=== PATIENT | male | born 1960 | race Caucasian/White ===

== ENCOUNTER 2021-10-31 15:16 | Inpatient (IN) | payer MEDICAID ==
[~2021-10-31] VITALS: Ht 172.7 cm; Wt 68.5 kg
[~2021-10-31 15:16] MED LIST: ALBU6.7H9 INH; LEVA15HF4 IH; PROM12.512 PO; TRAM50TA2 PO
[2021-10-31] MEDS ORDERED: normal saline 1000ML IV soln IV ONE (16:00)
[2021-10-31] MEDS ORDERED: CefTRIAXone 2gm/NS 100ml IVPB 100 ML IV ONE (16:20)
[2021-10-31 16:43] LABS: ALANINE AMINOTRANSFERASE 59 U/L (12-78); ALBUMIN 1.7 G/DL (3.4-5.0); ALBUMIN/GLOBULIN RATIO 0.4 (1.1-1.5); ALKALINE PHOSPHATASE 142 IU/L (46-116); ANION GAP 7 (8-16); ASPARTATE AMINO TRANSFERASE 73 U/L (10-37); BILIRUBIN,TOTAL 1.8 MG/DL (0.1-1.0); BLOOD UREA NITROGEN 13 MG/DL (7-18); CALCIUM 7.2 MG/DL (8.5-10.1); CHLORIDE 111 MMOL/L (99-107); CREATININE 0.59 MG/DL (0.60-1.10); GLUCOSE 126 MG/DL (70-104); POTASSIUM 3.6 MMOL/L (3.5-5.1); SODIUM 141 MMOL/L (135-145); TOTAL CARBON DIOXIDE 22.7 MMOL/L (24-32); TOTAL PROTEIN 5.9 G/DL (6.4-8.2); eGFR > 90 ML/MIN
[2021-10-31 16:52] LABS: BASOPHILS # (AUTO) 0.1 X10'3 (0-0.2); BASOPHILS % (AUTO) 0.6 % (0-1); EOSINOPHILS # (AUTO) 0.1 X10'3 (0-0.9); EOSINOPHILS % (AUTO) 0.8 % (0-6); HEMATOCRIT 32.4 % (42.0-52.0); HEMOGLOBIN 10.9 g/dl (14.0-17.9); LYMPHOCYTES # (AUTO) 1.4 X10'3 (1.1-4.8); LYMPHOCYTES % (AUTO) 12.3 % (21-51); MEAN CORPUSCULAR HEMOGLOBIN 34.2 PG (27.0-31.0); MEAN CORPUSCULAR HGB CONC 33.7 g/dL (33.0-36.5); MEAN CORPUSCULAR VOLUME 101.4 FL (78-98); MONOCYTES # (AUTO) 1.2 X10'3 (0-0.9); MONOCYTES % (AUTO) 10.6 % (2-12); NEUTROPHILS # (AUTO) 8.6 X10'3 (1.8-7.7); NEUTROPHILS % (AUTO) 75.7 % (42-75); RED BLOOD COUNT 3.19 X10'6 (4.70-6.10); RED CELL DISTRIBUTION WIDTH 17.3 % (11.5-14.5); WHITE BLOOD COUNT 11.3 X10'3 (4.5-11.0)
[2021-10-31 17:12] LABS: MEAN PLATELET VOLUME 8.5 FL (7.4-10.4)
[2021-10-31 17:13] LABS: PLATELET COUNT 86 X10'3 (140-440)
[2021-10-31] MEDS ORDERED: ondansetron 4mg rapidly disintigrating tab PO PRN (18:05)
[2021-10-31] MEDS ORDERED: magnesium hydroxide 30ml (MOM) UD suspension PO PRN (18:05)
[2021-10-31] MEDS ORDERED: mag hydrox/Alum hydrox/simeth 30ml oral suspension PO PRN (18:05)
[2021-10-31] MEDS ORDERED: ondansetron/PF 4mg/2ml inj IV PRN (18:05)
[2021-10-31] MEDS ORDERED: potassium Cl 20 mEq SR tablet PO PRN ×2 (18:05)
[2021-10-31] MEDS ORDERED: potassium CL 10mEq/100ml bag 100 ML IV PRN (18:05)
[2021-10-31] MEDS ORDERED: metoclopramide 5 mg/ml inj IV PRN (18:05)
[2021-10-31] MEDS ORDERED: bisacodyl 10mg suppository rectal RC PRN (18:05)
[2021-10-31] MEDS ORDERED: acetaminophen 325mg tablet PO PRN ×2 (18:05)
[2021-10-31] MEDS ORDERED: magnesium Cl slow-release 64mg tablet PO PRN (18:05)
[2021-10-31] MEDS ORDERED: PERFLUTREN PROTEIN-A MICROSPHR (Optison) 0.22 MG/ML 3ML VIAL IV ONE (18:05)
[2021-10-31] MEDS ORDERED: magnesium 4gm in 100ml NS 100 ML IV PRN (18:05)
[2021-10-31] MEDS ORDERED: acetaminophen 650mg rectal suppository RC PRN (18:05)
[2021-10-31] MEDS ORDERED: magnesium 2GM in 50ml NS 50 ML IV PRN (18:05)
[2021-10-31] MEDS ORDERED: iohexol 350MG/ML 100ml bottle IV ONE (18:29)
[2021-10-31 18:39] LABS: ETHANOL < 0.010 GM/DL (0.0-0.010)
[2021-10-31] MEDS: K and/or MAG REPLACEMENT MC SCH (18:41)
[2021-10-31] MEDS: normal saline 1000ml 1,000 ML IV SCH (19:04)
[2021-10-31] MEDS: docusate sod 100mg capsule PO SCH (20:00)
[2021-10-31 22:00] VITALS: BP 118/55
[2021-10-31] MEDS ORDERED: ALB0.5UD IH (22:12)
[2021-11-01] MEDS: normal saline 1000ml 1,000 ML IV SCH ×3 (04:05→23:32)
[2021-11-01 06:00] VITALS: BP 136/72
[2021-11-01 06:54] LABS: BASOPHILS % (AUTO) 0.3 % (0-1); EOSINOPHILS % (AUTO) 0.1 % (0-6); HEMOGLOBIN 10.1 g/dl (14.0-17.9); LYMPHOCYTES # (AUTO) 1.5 X10'3 (1.1-4.8); LYMPHOCYTES % (AUTO) 11.7 % (21-51); MEAN CORPUSCULAR HEMOGLOBIN 33.7 PG (27.0-31.0); MEAN CORPUSCULAR HGB CONC 33.5 g/dL (33.0-36.5); MEAN CORPUSCULAR VOLUME 100.4 FL (78-98); MEAN PLATELET VOLUME 9.1 FL (7.4-10.4); MONOCYTES # (AUTO) 1.7 X10'3 (0-0.9); MONOCYTES % (AUTO) 13.3 % (2-12); NEUTROPHILS # (AUTO) 9.3 X10'3 (1.8-7.7); NEUTROPHILS % (AUTO) 74.6 % (42-75); RED BLOOD COUNT 2.99 X10'6 (4.70-6.10); RED CELL DISTRIBUTION WIDTH 17.2 % (11.5-14.5); WHITE BLOOD COUNT 12.5 X10'3 (4.5-11.0)
[2021-11-01 06:58] LABS: PLATELET COUNT 80 X10'3 (140-440)
[2021-11-01 07:46] LABS: ALANINE AMINOTRANSFERASE 51 U/L (12-78); ALBUMIN 1.5 G/DL (3.4-5.0); ALBUMIN/GLOBULIN RATIO 0.4 (1.1-1.5); ALKALINE PHOSPHATASE 110 IU/L (46-116); ANION GAP 9 (8-16); ASPARTATE AMINO TRANSFERASE 73 U/L (10-37); BILIRUBIN,TOTAL 2.4 MG/DL (0.1-1.0); BLOOD UREA NITROGEN 12 MG/DL (7-18); BUN/CREATININE RATIO 23.1 (5.4-32.0); CALCIUM 7.1 MG/DL (8.5-10.1); CHLORIDE 114 MMOL/L (99-107); CREATININE 0.52 MG/DL (0.60-1.10); GLUCOSE 102 MG/DL (70-104); MAGNESIUM 1.9 MG/DL (1.5-2.4); POTASSIUM 3.5 MMOL/L (3.5-5.1); SODIUM 145 MMOL/L (135-145); TOTAL CARBON DIOXIDE 21.7 MMOL/L (24-32); TOTAL PROTEIN 5.6 G/DL (6.4-8.2); eGFR > 90 ML/MIN
[2021-11-01] MEDS: enoxaparin 40mg/0.4ml syringe SUBCUT SCH (08:00)
[2021-11-01] MEDS: K and/or MAG REPLACEMENT MC SCH ×2 (08:00→19:31)
[2021-11-01] MEDS: docusate sod 100mg capsule PO SCH ×2 (08:40→19:26)
[2021-11-01] MEDS: multivitamins, therapeutics tablet PO SCH (08:41)
[2021-11-01] MEDS: folic acid 1mg tablet PO SCH (08:41)
[2021-11-01] MEDS ORDERED: FLO0.4C PO (09:25)
[2021-11-01] MEDS ORDERED: PANT40TA54 PO (09:25)
[2021-11-01] MEDS ORDERED: TIOT4MIS3 INH (09:25)
[2021-11-01] MEDS ORDERED: LACT10SO3 PO (09:25)
[2021-11-01] MEDS ORDERED: ALBU8.5H17 IH (09:26)
--- NOTE | 2021-11-01 09:54 | NUR ---
Noted pt admitted w/ failure to thrive, transaminitis, and constipation. Pt endorses that he has a good appetite and has been eating well. Despite this, pt states that he has lost about 6lb, going from 145-139, in the last few months, constituting a non significant 4% wt loss. Of note, this wt range appears consistent with previous admits from 2016 and 2014. Pt does appear to have moderate full body muscle/fat wasting, which he states is not his baseline appearance. No edema noted, though has general severe muscle weakness At this time, pt meets minimum criteria for malnutrition, MD notified. Pt is missing some teeth, BSS has been ordered. Will continue to monitor. Recs: 1. Continue Regular diet w/ texture per [employer] recs; pt endorses good appetite 2. Monitor need for ONS 3. Bowel care per rx; hx of constipation 4. Scaled wts this admit Addendum: 11/01/21 at [address] Amended: Links added.
--- NOTE | 2021-11-01 10:18 | NUR ---
PAGER ID: [phone] MESSAGE: [id number] Juan +blood cultures gram + cocci clusters MAYUR [id number]
[2021-11-01 10:21] LABS: % IRON SATURATION 31 % (11-46); IRON 39 UG/DL (53-167); TOTAL IRON BINDING CAPACITY 127 UG/DL (259-388)
[2021-11-01 10:40] VITALS: BP 111/63
[2021-11-01 15:17] LABS: HIV ANTIBODY 1&2 RAPID NON-REACTIVE (Neg)
[2021-11-01] MEDS: cefTRIAXone 1g/NS 100ml IVPB 100 ML IV SCH (17:32)
[2021-11-01 18:00] VITALS: BP 110/51
[2021-11-01] MEDS: thiamine 100mg tablet PO SCH (19:38)
[2021-11-01 22:00] VITALS: BP 100/49
[2021-11-01] MEDS: HYDROcodone/acetaminophen 10/325mg tab PO PRN (22:23)
--- NOTE | 2021-11-02 | NUR ---
Received report from Martinez VIZCAINO and assumed care of patient at midnight. Patient is currently sleeping in no distress.
--- NOTE | 2021-11-02 | NUR ---
GAVE REPORT TO CARRILLO NEIL.
--- NOTE | 2021-11-02 00:15 | NUR ---
I have reviewed patient assessment completed earlier in this shift and agree with the finding.
[2021-11-02 02:15] VITALS: BP 117/73
[2021-11-02] MEDS: HYDROcodone/acetaminophen 10/325mg tab PO PRN (02:17)
--- NOTE | 2021-11-02 02:39 | NUR ---
Around 0200, patient awoke in pain and also requested his albuterol inhaler. Lungs have expiratory wheezing thru out and patient has a moist non-productive code. Paged MD and new orders were entered via MD for patient to have breathing treatments. RT has been notified.
[2021-11-02] MEDS: albuterol 2.5 MG/3 ML nebule NEB PRN (02:53)
[2021-11-02 06:00] VITALS: BP 110/63
[2021-11-02 06:03] LABS: BASOPHILS % (AUTO) 0.3 % (0-1); EOSINOPHILS # (AUTO) 0.2 X10'3 (0-0.9); EOSINOPHILS % (AUTO) 1.9 % (0-6); HEMOGLOBIN 10.8 g/dl (14.0-17.9); LYMPHOCYTES % (AUTO) 16.6 % (21-51); MEAN CORPUSCULAR HEMOGLOBIN 34.1 PG (27.0-31.0); MEAN CORPUSCULAR HGB CONC 33.8 g/dL (33.0-36.5); MEAN CORPUSCULAR VOLUME 100.8 FL (78-98); MEAN PLATELET VOLUME 9.5 FL (7.4-10.4); MONOCYTES # (AUTO) 1.5 X10'3 (0-0.9); MONOCYTES % (AUTO) 12.2 % (2-12); NEUTROPHILS # (AUTO) 8.5 X10'3 (1.8-7.7); PLATELET COUNT 80 X10'3 (140-440); RED BLOOD COUNT 3.17 X10'6 (4.70-6.10); WHITE BLOOD COUNT 12.4 X10'3 (4.5-11.0)
[2021-11-02 06:24] LABS: ALANINE AMINOTRANSFERASE 48 U/L (12-78); ALBUMIN 1.5 G/DL (3.4-5.0); ALBUMIN/GLOBULIN RATIO 0.4 (1.1-1.5); ALKALINE PHOSPHATASE 107 IU/L (46-116); ANION GAP 5 (8-16); ASPARTATE AMINO TRANSFERASE 70 U/L (10-37); BILIRUBIN,TOTAL 1.8 MG/DL (0.1-1.0); BLOOD UREA NITROGEN 12 MG/DL (7-18); CALCIUM 7.1 MG/DL (8.5-10.1); CHLORIDE 112 MMOL/L (99-107); CREATININE 0.48 MG/DL (0.60-1.10); GLUCOSE 102 MG/DL (70-104); MAGNESIUM 1.9 MG/DL (1.5-2.4); POTASSIUM 3.8 MMOL/L (3.5-5.1); SODIUM 140 MMOL/L (135-145); TOTAL CARBON DIOXIDE 22.7 MMOL/L (24-32); TOTAL PROTEIN 5.4 G/DL (6.4-8.2); eGFR > 90 ML/MIN
--- NOTE | 2021-11-02 06:39 | NUR ---
Problems reprioritized. Patient report given, questions answered & plan of care reviewed with Bibiana VIZCAINO.
[2021-11-02] MEDS: enoxaparin 40mg/0.4ml syringe SUBCUT SCH (08:00)
[2021-11-02] MEDS: docusate sod 100mg capsule PO SCH ×2 (08:00→19:48)
[2021-11-02] MEDS: K and/or MAG REPLACEMENT MC SCH ×2 (08:00→19:38)
[2021-11-02] MEDS: ipratropium/albuterol 3ml nebule NEB SCH ×3 (08:37→20:10)
[2021-11-02] MEDS: budesonide 0.5mg/2ml UD nebule IH SCH ×2 (08:37→20:10)
[2021-11-02] MEDS: lactulose 20gm/30ml cup PO SCH ×2 (08:56→19:49)
[2021-11-02] MEDS: thiamine 100mg tablet PO SCH ×2 (08:58→19:48)
[2021-11-02] MEDS: multivitamins, therapeutics tablet PO SCH (08:58)
[2021-11-02] MEDS: pantoprazole 40mg Tablet.DR PO SCH (08:58)
[2021-11-02] MEDS: tamsulosin 0.4mg capsule PO SCH (08:58)
[2021-11-02] MEDS: folic acid 1mg tablet PO SCH (08:58)
[2021-11-02] MEDS: vancomycin/NS 1 GM ADD-VANTAGE 250 ML IV SCH ×2 (09:05→17:40)
[2021-11-02 10:00] VITALS: BP 126/67
[2021-11-02] MEDS: normal saline 1000ml 1,000 ML IV SCH ×2 (10:05→19:48)
[2021-11-02 11:41] LABS: % FREE PSA 13.3 % (.); PSA, FREE 0.04 ng/mL
[2021-11-02 14:30] VITALS: BP 106/51
[2021-11-02] MEDS: cefTRIAXone 1g/NS 100ml IVPB 100 ML IV SCH (16:59)
[2021-11-02 18:00] VITALS: BP 114/58
--- NOTE | 2021-11-02 18:25 | NUR ---
Report to Linda VIZCAINO
--- NOTE | 2021-11-02 18:54 | NUR ---
Patient in room ORTHO 4009. I have received report from Bibiana VIZCAINO and had the opportunity to ask questions and assume patient care.
[2021-11-02 22:00] VITALS: BP 118/60
[2021-11-03] MEDS ORDERED: VANCOMYCIN LEVEL IV ONE (00:30)
[2021-11-03] MEDS: vancomycin/NS 1 GM ADD-VANTAGE 250 ML IV SCH (00:41)
[2021-11-03 01:12] LABS: VANCOMYCIN,TROUGH 11.8 UG/ML (6.0-14.0)
[2021-11-03 02:00] VITALS: BP 100/49
[2021-11-03 05:44] LABS: BASOPHILS % (AUTO) 0.4 % (0-1); EOSINOPHILS # (AUTO) 0.3 X10'3 (0-0.9)
[2021-11-03 05:46] LABS: EOSINOPHILS % (AUTO) 3.2 % (0-6); LYMPHOCYTES # (AUTO) 1.6 X10'3 (1.1-4.8); LYMPHOCYTES % (AUTO) 14.9 % (21-51); MEAN CORPUSCULAR HEMOGLOBIN 33.8 PG (27.0-31.0); MEAN CORPUSCULAR HGB CONC 33.5 g/dL (33.0-36.5); MEAN PLATELET VOLUME 9.7 FL (7.4-10.4); MONOCYTES # (AUTO) 1.4 X10'3 (0-0.9); MONOCYTES % (AUTO) 13.1 % (2-12); NEUTROPHILS # (AUTO) 7.2 X10'3 (1.8-7.7); NEUTROPHILS % (AUTO) 68.4 % (42-75); RED BLOOD COUNT 2.97 X10'6 (4.70-6.10); RED CELL DISTRIBUTION WIDTH 16.9 % (11.5-14.5); WHITE BLOOD COUNT 10.5 X10'3 (4.5-11.0)
[2021-11-03 05:56] LABS: PLATELET COUNT 77 X10'3 (140-440)
[2021-11-03] MEDS: normal saline 1000ml 1,000 ML IV SCH ×2 (06:05→16:34)
[2021-11-03 06:10] LABS: ALANINE AMINOTRANSFERASE 50 U/L (12-78); ALBUMIN 1.5 G/DL (3.4-5.0); ALBUMIN/GLOBULIN RATIO 0.4 (1.1-1.5); ALKALINE PHOSPHATASE 103 IU/L (46-116); ANION GAP 8 (8-16); ASPARTATE AMINO TRANSFERASE 74 U/L (10-37); BILIRUBIN,TOTAL 1.7 MG/DL (0.1-1.0); BLOOD UREA NITROGEN 10 MG/DL (7-18); BUN/CREATININE RATIO 20.8 (5.4-32.0); CALCIUM 7.1 MG/DL (8.5-10.1); CHLORIDE 110 MMOL/L (99-107); CREATININE 0.48 MG/DL (0.60-1.10); GLUCOSE 98 MG/DL (70-104); MAGNESIUM 1.6 MG/DL (1.5-2.4); POTASSIUM 3.6 MMOL/L (3.5-5.1); SODIUM 140 MMOL/L (135-145); TOTAL CARBON DIOXIDE 22.1 MMOL/L (24-32); TOTAL PROTEIN 5.4 G/DL (6.4-8.2); eGFR > 90 ML/MIN
--- NOTE | 2021-11-03 06:21 | NUR ---
Problems reprioritized. Patient report given, questions answered & plan of care reviewed with Nancy VIZCAINO.
--- NOTE | 2021-11-03 06:27 | NUR ---
Received report from CARRILLO Mckeon
[2021-11-03 06:53] VITALS: BP 121/67
--- NOTE | 2021-11-03 07:08 | NUR ---
PAGER ID: [phone] MESSAGE: Juan oshea positive blood culture from yesterday 11/02 gram positive cocci in clusters. Nancy [phone]
[2021-11-03] MEDS: K and/or MAG REPLACEMENT MC SCH ×2 (08:00→19:07)
[2021-11-03] MEDS: enoxaparin 40mg/0.4ml syringe SUBCUT SCH (08:00)
[2021-11-03] MEDS: docusate sod 100mg capsule PO SCH ×2 (08:00→21:06)
[2021-11-03] MEDS: albuterol 2.5 MG/3 ML nebule NEB PRN (08:24)
[2021-11-03] MEDS: budesonide 0.5mg/2ml UD nebule IH SCH ×2 (08:24→19:50)
[2021-11-03] MEDS: ipratropium/albuterol 3ml nebule NEB SCH ×3 (09:00→19:50)
[2021-11-03] MEDS: pantoprazole 40mg Tablet.DR PO SCH (09:12)
[2021-11-03] MEDS: multivitamins, therapeutics tablet PO SCH (09:12)
[2021-11-03] MEDS: lactulose 20gm/30ml cup PO SCH (09:12)
[2021-11-03] MEDS: tamsulosin 0.4mg capsule PO SCH (09:12)
[2021-11-03] MEDS: thiamine 100mg tablet PO SCH ×2 (09:12→21:06)
[2021-11-03] MEDS: folic acid 1mg tablet PO SCH (09:12)
[2021-11-03] MEDS: VANCOmycin 1250MG/NS 250ml Bag 250 ML IV SCH ×2 (09:34→16:34)
--- NOTE | 2021-11-03 10:02 | NUR ---
Respiratory administered 0900 albuterol but did not scan it. This RN witnessed this
[2021-11-03 10:25] VITALS: BP 101/47
[2021-11-03] MEDS: HYDROcodone/acetaminophen 10/325mg tab PO PRN ×2 (12:43→21:07)
--- NOTE | 2021-11-03 12:52 | NUR ---
PAGER ID: [phone] MESSAGE: [id number] patient is complaining of a lot of pain, wakes up screaming says everything hurts. Patient stated right side hurts worse than left, hips and low back area. Do you want any imaging? syd [id number]
--- NOTE | 2021-11-03 14:00 | NUR ---
patient to CT scan
--- NOTE | 2021-11-03 14:08 | NUR ---
PAGER ID: [phone] MESSAGE: KirtiJuan ammonia is 55, on 10 of lactulose BID. [place] 0373
--- NOTE | 2021-11-03 14:52 | NUR ---
PAGER ID: [phone] MESSAGE: Juan oshea head ct shows acute/evolving infarct in left parietal. Nancy [phone]
--- NOTE | 2021-11-03 15:48 | NUR ---
Neurotelemedicine evaluation set up and Dr Espinal notified, he is aware of his ct of the pelvis results along with ct of head.
[2021-11-03 16:14] VITALS: BP 103/48
[2021-11-03] MEDS: aspirin 81mg, enteric-coated 1 TAB TABLET.DR PO SCH (16:32)
--- NOTE | 2021-11-03 16:40 | NUR ---
PAGER ID: [phone] MESSAGE: [id number] can i put a call in him considering he is painful and broken in many places on the left side and is incontinent? thanks syd [phone]
[2021-11-03 16:47] LABS: CHOL/HDL RATIO 3.5 (0.00-4.99); CHOLESTEROL 99 MG/DL (0-200); HDL CHOLESTEROL 28 MG/DL (35-60); LDL CHOLESTEROL 65 MG/DL (50-100); TRIGLYCERIDES 33 MG/DL (20-135)
[2021-11-03 18:00] VITALS: BP 109/60
--- NOTE | 2021-11-03 18:14 | NUR ---
report given to tegan VIZCAINO
[2021-11-03 18:15] LABS: HBSAG SCREEN Negative (Negative); HEP A AB, IGM Negative (Negative); HEPATITIS C ANTIBODY >11.0 s/co ratio (0.0-0.9)
[2021-11-03 18:15] LABS: HEMOGLOBIN A1C 4.3 % (4.5-6.2)
--- NOTE | 2021-11-03 18:40 | NUR ---
Patient in room ORTHO 4009. I have received report from Nancy VIZCAINO and had the opportunity to ask questions and assume patient care.
[2021-11-03 22:00] VITALS: BP 122/71
[2021-11-03] MEDS ORDERED: iohexol 350MG/ML 100ml bottle IV ONE (22:10)
[2021-11-04] MEDS: lactulose 20gm/30ml cup PO SCH ×3 (00:49→16:19)
[2021-11-04] MEDS: VANCOmycin 1250MG/NS 250ml Bag 250 ML IV SCH ×3 (00:53→16:55)
[2021-11-04 02:00] VITALS: BP 104/51
[2021-11-04] MEDS: normal saline 1000ml 1,000 ML IV SCH ×3 (02:05→23:31)
[2021-11-04 06:00] VITALS: BP 116/69
--- NOTE | 2021-11-04 06:45 | NUR ---
Problems reprioritized. Patient report given, questions answered & plan of care reviewed with Justyna VIZCAINO.
[2021-11-04] MEDS: ipratropium/albuterol 3ml nebule NEB SCH ×3 (07:12→20:30)
[2021-11-04] MEDS: budesonide 0.5mg/2ml UD nebule IH SCH ×2 (07:12→20:30)
[2021-11-04] MEDS: enoxaparin 40mg/0.4ml syringe SUBCUT SCH (08:00)
[2021-11-04] MEDS: aspirin 81mg, enteric-coated 1 TAB TABLET.DR PO SCH (08:00)
[2021-11-04] MEDS: K and/or MAG REPLACEMENT MC SCH ×2 (08:00→20:00)
[2021-11-04] MEDS ORDERED: VANCOMYCIN LEVEL IV ONE (08:30)
[2021-11-04] MEDS: thiamine 100mg tablet PO SCH ×3 (08:57→23:19)
[2021-11-04] MEDS: pantoprazole 40mg Tablet.DR PO SCH (08:57)
[2021-11-04] MEDS: multivitamins, therapeutics tablet PO SCH (08:57)
[2021-11-04] MEDS: docusate sod 100mg capsule PO SCH ×3 (08:57→23:20)
[2021-11-04] MEDS: tamsulosin 0.4mg capsule PO SCH (08:57)
[2021-11-04] MEDS: HYDROcodone/acetaminophen 10/325mg tab PO PRN (08:58)
[2021-11-04] MEDS: folic acid 1mg tablet PO SCH (08:58)
[2021-11-04 09:50] LABS: BASOPHILS % (AUTO) 0.3 % (0-1); EOSINOPHILS # (AUTO) 0.4 X10'3 (0-0.9); EOSINOPHILS % (AUTO) 3.4 % (0-6); HEMATOCRIT 29.7 % (42.0-52.0); HEMOGLOBIN 10.1 g/dl (14.0-17.9); LYMPHOCYTES # (AUTO) 1.4 X10'3 (1.1-4.8); LYMPHOCYTES % (AUTO) 12.9 % (21-51); MEAN CORPUSCULAR HEMOGLOBIN 34.6 PG (27.0-31.0); MEAN CORPUSCULAR VOLUME 101.7 FL (78-98); MEAN PLATELET VOLUME 9.5 FL (7.4-10.4); MONOCYTES # (AUTO) 1.1 X10'3 (0-0.9); MONOCYTES % (AUTO) 10.7 % (2-12); NEUTROPHILS # (AUTO) 7.8 X10'3 (1.8-7.7); NEUTROPHILS % (AUTO) 72.7 % (42-75); PLATELET COUNT 71 X10'3 (140-440); RED BLOOD COUNT 2.92 X10'6 (4.70-6.10); RED CELL DISTRIBUTION WIDTH 17.3 % (11.5-14.5); WHITE BLOOD COUNT 10.7 X10'3 (4.5-11.0)
--- NOTE | 2021-11-04 09:54 | NUR ---
Notified Dr. Prabhakar of pt's low platlet count and that I held todays doses of aspirin and lovenox.
[2021-11-04 10:00] VITALS: BP 108/66
[2021-11-04 10:04] LABS: ALANINE AMINOTRANSFERASE 50 U/L (12-78); ALBUMIN 1.4 G/DL (3.4-5.0); ALBUMIN/GLOBULIN RATIO 0.3 (1.1-1.5); ALKALINE PHOSPHATASE 114 IU/L (46-116); ASPARTATE AMINO TRANSFERASE 79 U/L (10-37); BILIRUBIN,TOTAL 1.3 MG/DL (0.1-1.0); BLOOD UREA NITROGEN 11 MG/DL (7-18); BUN/CREATININE RATIO 25.6 (5.4-32.0); CALCIUM 7.3 MG/DL (8.5-10.1); CREATININE 0.43 MG/DL (0.60-1.10); GLUCOSE 109 MG/DL (70-104); MAGNESIUM 1.9 MG/DL (1.5-2.4); TOTAL CARBON DIOXIDE 25.1 MMOL/L (24-32); TOTAL PROTEIN 5.6 G/DL (6.4-8.2); VANCOMYCIN,TROUGH 15.1 UG/ML (6.0-14.0); eGFR > 90 ML/MIN
[2021-11-04 10:39] LABS: ANION GAP 4 (8-16); CHLORIDE 107 MMOL/L (99-107); POTASSIUM 3.7 MMOL/L (3.5-5.1); SODIUM 136 MMOL/L (135-145)
--- NOTE | 2021-11-04 11:58 | NUR ---
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 Pt A/O x 2 and confused per EMR, s/p BSS with ST recs minced and moist food with thin liquids d/t difficulty chewing. Pt initially with 75-100% PO intake however has declined to 0-25% since dinner 11/02, though with 25-50% PO intake at dinner 11/03. Noted pt consumed 100% of milk at two most recent meals, recommend Ensure Enlive TID to optimize PO intake, to be sent pending physician approval in EMR. If pt not accepting of ONS and PO intake of meals does not improve, recommend NGT placement for EN to optimize nutrition status during admit. LBM 11/04 per I&O, receiving routine bowel care. Will continue to follow closely. Recommendations: 1. Continue MM5 diet with thin liquids per ST recs 2. Ensure Enlive TIDWM, pending physician approval in EMR 3. Encourage PO intake and assist with meals in view of confusion 4. Consider NGT placement for EN if PO intake does not improve 5. Continue routine Thiamine, Folic acid, and MVI in view of EtOH hx with elevated MCV 6. Routine bowel care 7. Scaled weight this admit; subsequent weekly scaled weights Addendum: 11/04/21 at [address] Amended: Links added.
[2021-11-04] MEDS: lactose-reduced food (Ensure Enlive) - 237ml bottle PO SCH ×2 (13:00→18:00)
[2021-11-04 14:00] VITALS: BP 113/60
[2021-11-04 18:00] VITALS: BP 115/62
--- NOTE | 2021-11-04 18:00 | NUR ---
Patient in room ORTHO 4009. I have received report from IBETH VIZCAINO and had the opportunity to ask questions and assume patient care.
--- NOTE | 2021-11-04 20:00 | NUR ---
PATIENT WAS UNCOOPERATIVE WITH NEURO AND NIH ASSMTS. WANTS TO "BE LEFT ALONE, I'M TIRED OF EVERYONE COMING IN HERE AND WAKING ME UP ALL THE TIME"
[2021-11-04 22:00] VITALS: BP 109/55
--- NOTE | 2021-11-04 23:49 | NUR ---
Repositioned patient and patient was agitated. Patient refused his Colace and Thiamine.
[2021-11-05] MEDS: VANCOmycin 1250MG/NS 250ml Bag 250 ML IV SCH ×3 (01:07→16:55)
[2021-11-05 02:00] VITALS: BP 116/53
[2021-11-05] MEDS: HYDROcodone/acetaminophen 10/325mg tab PO PRN ×2 (02:38→09:16)
[2021-11-05 06:00] VITALS: BP 139/68
--- NOTE | 2021-11-05 06:20 | NUR ---
Problems reprioritized. Patient report given, questions answered & plan of care reviewed with IBETH VIZCAINO.
[2021-11-05 06:43] LABS: BASOPHILS # (AUTO) 0.1 X10'3 (0-0.2); BASOPHILS % (AUTO) 0.8 % (0-1); EOSINOPHILS # (AUTO) 0.5 X10'3 (0-0.9); HEMATOCRIT 29.3 % (42.0-52.0); HEMOGLOBIN 9.8 g/dl (14.0-17.9); LYMPHOCYTES # (AUTO) 1.4 X10'3 (1.1-4.8); LYMPHOCYTES % (AUTO) 12.8 % (21-51); MEAN CORPUSCULAR HEMOGLOBIN 34.5 PG (27.0-31.0); MEAN CORPUSCULAR HGB CONC 33.6 g/dL (33.0-36.5); MEAN CORPUSCULAR VOLUME 102.9 FL (78-98); MONOCYTES % (AUTO) 9.3 % (2-12); NEUTROPHILS # (AUTO) 7.7 X10'3 (1.8-7.7); NEUTROPHILS % (AUTO) 72.1 % (42-75); RED BLOOD COUNT 2.85 X10'6 (4.70-6.10); RED CELL DISTRIBUTION WIDTH 17.5 % (11.5-14.5); WHITE BLOOD COUNT 10.7 X10'3 (4.5-11.0)
[2021-11-05 06:48] LABS: MEAN PLATELET VOLUME 8.3 FL (7.4-10.4)
[2021-11-05 06:49] LABS: PLATELET COUNT 84 X10'3 (140-440)
[2021-11-05 07:16] LABS: ANISOCYTOSIS 1+; PLATELET ESTIMATE DECREASED; POIKILOCYTOSIS FEW; POLYCHROMASIA FEW; TOTAL CELLS COUNTED 100
[2021-11-05 07:22] LABS: ALANINE AMINOTRANSFERASE 51 U/L (12-78); ALBUMIN 1.4 G/DL (3.4-5.0); ALBUMIN/GLOBULIN RATIO 0.4 (1.1-1.5); ALKALINE PHOSPHATASE 106 IU/L (46-116); ANION GAP 4 (8-16); ASPARTATE AMINO TRANSFERASE 86 U/L (10-37); BILIRUBIN,TOTAL 1.2 MG/DL (0.1-1.0); BLOOD UREA NITROGEN 15 MG/DL (7-18); BUN/CREATININE RATIO 34.1 (5.4-32.0); CALCIUM 7.2 MG/DL (8.5-10.1); CHLORIDE 110 MMOL/L (99-107); CREATININE 0.44 MG/DL (0.60-1.10); GLUCOSE 115 MG/DL (70-104); POTASSIUM 4.4 MMOL/L (3.5-5.1); SODIUM 139 MMOL/L (135-145); TOTAL CARBON DIOXIDE 24.8 MMOL/L (24-32); TOTAL PROTEIN 5.4 G/DL (6.4-8.2); eGFR > 90 ML/MIN
[2021-11-05] MEDS: lactose-reduced food (Ensure Enlive) - 237ml bottle PO SCH ×3 (08:00→17:51)
[2021-11-05] MEDS: K and/or MAG REPLACEMENT MC SCH ×2 (08:00→20:00)
[2021-11-05] MEDS: thiamine 100mg tablet PO SCH ×2 (09:02→20:30)
[2021-11-05] MEDS: docusate sod 100mg capsule PO SCH ×2 (09:02→20:30)
[2021-11-05] MEDS: tamsulosin 0.4mg capsule PO SCH (09:02)
[2021-11-05] MEDS: lactulose 20gm/30ml cup PO SCH ×3 (09:03→16:00)
[2021-11-05] MEDS: multivitamins, therapeutics tablet PO SCH (09:03)
[2021-11-05] MEDS: pantoprazole 40mg Tablet.DR PO SCH (09:03)
[2021-11-05] MEDS: folic acid 1mg tablet PO SCH (09:03)
[2021-11-05] MEDS: budesonide 0.5mg/2ml UD nebule IH SCH ×2 (09:42→20:17)
[2021-11-05] MEDS: ipratropium/albuterol 3ml nebule NEB SCH ×3 (09:42→20:17)
[2021-11-05 10:00] VITALS: BP 113/61
[2021-11-05] MEDS: normal saline 1000ml 1,000 ML IV SCH (13:49)
[2021-11-05 14:00] VITALS: BP 106/56
--- NOTE | 2021-11-05 16:50 | NUR ---
PAGER ID: [phone] MESSAGE: Sunshine [phone] re: Severo Juan in [id number]. Lab just notified me that Pt has gram positive cocci and clusters from the aerobic sample. Pt is on Vancomycin
[2021-11-05 18:00] VITALS: BP 114/52
--- NOTE | 2021-11-05 18:42 | NUR ---
Problems reprioritized. Patient report given, questions answered & plan of care reviewed with Johana VIZCAINO.
[2021-11-05] MEDS: HYDROcodone/acetaminophen 5mg/325mg tablet PO PRN (20:30)
[2021-11-05 22:00] VITALS: BP 101/55
[2021-11-06] MEDS: VANCOmycin 1250MG/NS 250ml Bag 250 ML IV SCH ×3 (01:25→17:38)
[2021-11-06] MEDS: HYDROcodone/acetaminophen 10/325mg tab PO PRN ×3 (02:53→20:37)
[2021-11-06] MEDS: normal saline 1000ml 1,000 ML IV SCH (04:07)
[2021-11-06 06:00] VITALS: BP 117/67
--- NOTE | 2021-11-06 06:49 | NUR ---
Patient in room ORTHO 4009. I have received report from CARRILLO Vaughn and had the opportunity to ask questions and assume patient care.
[2021-11-06] MEDS: docusate sod 100mg capsule PO SCH ×2 (07:10→20:36)
[2021-11-06] MEDS: pantoprazole 40mg Tablet.DR PO SCH (07:10)
[2021-11-06] MEDS: thiamine 100mg tablet PO SCH ×2 (07:10→20:36)
[2021-11-06] MEDS: tamsulosin 0.4mg capsule PO SCH (07:10)
[2021-11-06] MEDS: multivitamins, therapeutics tablet PO SCH (07:10)
[2021-11-06] MEDS: lactulose 20gm/30ml cup PO SCH ×3 (07:10→16:00)
[2021-11-06] MEDS: folic acid 1mg tablet PO SCH (07:10)
--- NOTE | 2021-11-06 07:26 | NUR ---
Problems reprioritized. Patient report given, questions answered & plan of care reviewed with JAMILA VIZCAINO.
[2021-11-06] MEDS: K and/or MAG REPLACEMENT MC SCH ×2 (08:00→20:00)
[2021-11-06] MEDS: lactose-reduced food (Ensure Enlive) - 237ml bottle PO SCH ×3 (08:00→17:39)
[2021-11-06] MEDS: ipratropium/albuterol 3ml nebule NEB SCH ×3 (09:26→19:56)
[2021-11-06] MEDS: budesonide 0.5mg/2ml UD nebule IH SCH ×2 (09:27→19:56)
[2021-11-06 10:00] VITALS: BP 105/41
[2021-11-06 14:00] VITALS: BP 109/54
[2021-11-06 18:00] VITALS: BP 112/51
--- NOTE | 2021-11-06 18:27 | NUR ---
Problems reprioritized. Patient report given, questions answered & plan of care reviewed with CARRILLO Vaughn.
--- NOTE | 2021-11-06 19:14 | NUR ---
Patient in room ORTHO 4009. I have received report from JAMILA VIZCAINO and had the opportunity to ask questions and assume patient care.
[2021-11-06 22:00] VITALS: BP 117/69
[2021-11-07] MEDS: lactulose 20gm/30ml cup PO SCH ×3 (00:05→16:09)
[2021-11-07 02:00] VITALS: BP 116/65
[2021-11-07] MEDS: VANCOmycin 1250MG/NS 250ml Bag 250 ML IV SCH ×3 (02:15→16:09)
[2021-11-07] MEDS: HYDROcodone/acetaminophen 10/325mg tab PO PRN ×3 (04:59→20:50)
--- NOTE | 2021-11-07 06:42 | NUR ---
Problems reprioritized. Patient report given, questions answered & plan of care reviewed with WHITNEY VIZCAINO.
[2021-11-07 07:00] VITALS: BP 123/69
--- NOTE | 2021-11-07 07:02 | NUR ---
Problems reprioritized. Patient report given, questions answered & plan of care reviewed with MAZIN VIZCAINO.
[2021-11-07] MEDS: ipratropium/albuterol 3ml nebule NEB SCH ×3 (07:33→20:04)
[2021-11-07] MEDS: budesonide 0.5mg/2ml UD nebule IH SCH ×2 (07:35→20:04)
[2021-11-07] MEDS: lactose-reduced food (Ensure Enlive) - 237ml bottle PO SCH ×3 (08:00→18:00)
[2021-11-07] MEDS: K and/or MAG REPLACEMENT MC SCH ×2 (08:00→20:00)
--- NOTE | 2021-11-07 08:06 | NUR ---
Reassessment: Pt continues on MM5 diet per [employer] recs though still w/ fairly low PO intake, avg 40% x 7 meals and 40% x 6 ONS, which is quite variable. Overall pt only partially meeting nutrient needs. Pt may benefit from NGT feedings if PO does not increase soon. LBM 11/06 receiving routine bowel care. Noted Judah score of 12, only w/ abrasion to knee per documentation. Will continue to monitor. Recommendations: 1. Continue MM5 diet with thin liquids per ST recs 2. Ensure Enlive TIDWM 3. Encourage PO intake and assist with meals in view of confusion 4. Consider NGT placement for EN if PO intake does not improve 5. Continue routine Thiamine, Folic acid, and MVI in view of EtOH hx with elevated MCV 6. Routine bowel care 7. Scaled weight this admit; subsequent weekly scaled weights Addendum: 11/07/21 at [address] Amended: Links added.
[2021-11-07] MEDS: tamsulosin 0.4mg capsule PO SCH (08:37)
[2021-11-07] MEDS: pantoprazole 40mg Tablet.DR PO SCH (08:37)
[2021-11-07] MEDS: thiamine 100mg tablet PO SCH ×2 (08:38→20:48)
[2021-11-07] MEDS: docusate sod 100mg capsule PO SCH ×2 (08:38→20:48)
[2021-11-07] MEDS: folic acid 1mg tablet PO SCH (08:38)
[2021-11-07] MEDS: multivitamins, therapeutics tablet PO SCH (08:38)
[2021-11-07] MEDS: normal saline 1000ml 1,000 ML IV SCH ×3 (08:43→23:19)
[2021-11-07 10:00] VITALS: BP 117/70
[2021-11-07 10:17] LABS: BASOPHILS % (AUTO) 0.3 % (0-1); EOSINOPHILS # (AUTO) 0.5 X10'3 (0-0.9); EOSINOPHILS % (AUTO) 5.5 % (0-6); HEMATOCRIT 30.7 % (42.0-52.0); HEMOGLOBIN 10.2 g/dl (14.0-17.9); LYMPHOCYTES # (AUTO) 1.5 X10'3 (1.1-4.8); MEAN CORPUSCULAR HEMOGLOBIN 33.6 PG (27.0-31.0); MEAN CORPUSCULAR HGB CONC 33.1 g/dL (33.0-36.5); MEAN CORPUSCULAR VOLUME 101.7 FL (78-98); MONOCYTES % (AUTO) 11.4 % (2-12); NEUTROPHILS # (AUTO) 5.9 X10'3 (1.8-7.7); NEUTROPHILS % (AUTO) 65.8 % (42-75); PLATELET COUNT 84 X10'3 (140-440); RED BLOOD COUNT 3.02 X10'6 (4.70-6.10); RED CELL DISTRIBUTION WIDTH 17.7 % (11.5-14.5); WHITE BLOOD COUNT 8.9 X10'3 (4.5-11.0)
[2021-11-07 10:38] LABS: ALANINE AMINOTRANSFERASE 68 U/L (12-78); ALBUMIN 1.5 G/DL (3.4-5.0); ALBUMIN/GLOBULIN RATIO 0.3 (1.1-1.5); ALKALINE PHOSPHATASE 119 IU/L (46-116); ANION GAP 5 (8-16); ASPARTATE AMINO TRANSFERASE 119 U/L (10-37); BILIRUBIN,TOTAL 1.4 MG/DL (0.1-1.0); BLOOD UREA NITROGEN 17 MG/DL (7-18); BUN/CREATININE RATIO 29.8 (5.4-32.0); CALCIUM 7.1 MG/DL (8.5-10.1); CHLORIDE 110 MMOL/L (99-107); CREATININE 0.57 MG/DL (0.60-1.10); GLUCOSE 99 MG/DL (70-104); POTASSIUM 4.2 MMOL/L (3.5-5.1); SODIUM 140 MMOL/L (135-145); TOTAL PROTEIN 5.8 G/DL (6.4-8.2); eGFR > 90 ML/MIN
[2021-11-07 14:00] VITALS: BP 106/49
[2021-11-07 18:00] VITALS: BP 108/57
--- NOTE | 2021-11-07 19:10 | NUR ---
Problems reprioritized. Patient report given, questions answered & plan of care reviewed with JOHNNY VIZCAINO.
[2021-11-07] MEDS: rifampin 300mg capsule PO SCH (20:48)
[2021-11-07 22:00] VITALS: BP 115/66
[2021-11-08] MEDS: lactulose 20gm/30ml cup PO SCH ×3 (01:28→16:51)
[2021-11-08] MEDS: VANCOmycin 1250MG/NS 250ml Bag 250 ML IV SCH ×3 (01:28→16:51)
[2021-11-08 02:00] VITALS: BP 127/74
[2021-11-08] MEDS: HYDROcodone/acetaminophen 10/325mg tab PO PRN ×3 (04:08→21:18)
[2021-11-08 05:13] LABS: BASOPHILS # (AUTO) 0.1 X10'3 (0-0.2); BASOPHILS % (AUTO) 0.6 % (0-1); EOSINOPHILS # (AUTO) 0.4 X10'3 (0-0.9); EOSINOPHILS % (AUTO) 5.3 % (0-6); HEMATOCRIT 33.8 % (42.0-52.0); HEMOGLOBIN 11.1 g/dl (14.0-17.9); LYMPHOCYTES # (AUTO) 1.3 X10'3 (1.1-4.8); LYMPHOCYTES % (AUTO) 16.2 % (21-51); MEAN CORPUSCULAR HEMOGLOBIN 33.5 PG (27.0-31.0); MEAN CORPUSCULAR HGB CONC 32.9 g/dL (33.0-36.5); MEAN CORPUSCULAR VOLUME 101.7 FL (78-98); MEAN PLATELET VOLUME 9.5 FL (7.4-10.4); MONOCYTES # (AUTO) 0.9 X10'3 (0-0.9); MONOCYTES % (AUTO) 10.7 % (2-12); NEUTROPHILS # (AUTO) 5.4 X10'3 (1.8-7.7); NEUTROPHILS % (AUTO) 67.2 % (42-75); RED BLOOD COUNT 3.33 X10'6 (4.70-6.10); RED CELL DISTRIBUTION WIDTH 17.8 % (11.5-14.5); WHITE BLOOD COUNT 8.1 X10'3 (4.5-11.0)
[2021-11-08 05:34] LABS: PLATELET COUNT 79 X10'3 (140-440)
[2021-11-08 05:48] LABS: ALANINE AMINOTRANSFERASE 79 U/L (12-78); ALBUMIN 1.7 G/DL (3.4-5.0); ALBUMIN/GLOBULIN RATIO 0.4 (1.1-1.5); ALKALINE PHOSPHATASE 130 IU/L (46-116); ANION GAP 6 (8-16); ASPARTATE AMINO TRANSFERASE 139 U/L (10-37); BILIRUBIN,TOTAL 2.8 MG/DL (0.1-1.0); BLOOD UREA NITROGEN 16 MG/DL (7-18); BUN/CREATININE RATIO 29.1 (5.4-32.0); CALCIUM 7.5 MG/DL (8.5-10.1); CHLORIDE 111 MMOL/L (99-107); CREATININE 0.55 MG/DL (0.60-1.10); GLUCOSE 102 MG/DL (70-104); POTASSIUM 4.2 MMOL/L (3.5-5.1); SODIUM 142 MMOL/L (135-145); TOTAL CARBON DIOXIDE 25.1 MMOL/L (24-32); TOTAL PROTEIN 6.1 G/DL (6.4-8.2); eGFR > 90 ML/MIN
[2021-11-08 07:21] VITALS: BP 135/84
[2021-11-08] MEDS: folic acid 1mg tablet PO SCH (08:00)
[2021-11-08] MEDS: docusate sod 100mg capsule PO SCH ×2 (08:00→21:19)
[2021-11-08] MEDS: pantoprazole 40mg Tablet.DR PO SCH (08:00)
[2021-11-08] MEDS: lactose-reduced food (Ensure Enlive) - 237ml bottle PO SCH ×3 (08:00→17:45)
[2021-11-08] MEDS: rifampin 300mg capsule PO SCH ×2 (08:00→21:18)
[2021-11-08] MEDS: thiamine 100mg tablet PO SCH ×2 (08:00→21:17)
[2021-11-08] MEDS: K and/or MAG REPLACEMENT MC SCH ×2 (08:00→20:00)
[2021-11-08] MEDS: ipratropium/albuterol 3ml nebule NEB SCH ×3 (08:10→21:05)
[2021-11-08] MEDS: budesonide 0.5mg/2ml UD nebule IH SCH ×2 (08:10→21:05)
--- NOTE | 2021-11-08 08:43 | NUR ---
PATIENT REFUSED ALL MORNING MEDS FOR NOW. PATIENT SEEMED AGITATED BEING WOKEN UP AND ASKED TO TAKE HIS MEDICATION, SO HE DID REFUSE HIS MEDS AT THIS TIME.
[2021-11-08] MEDS: ziprasidone 20mg capsule PO SCH ×2 (10:20→21:17)
[2021-11-08] MEDS ORDERED: ziprasidone IM 20mg inj **IM only IM ONE (10:20)
[2021-11-08] MEDS ORDERED: furosemide 20MG tablet PO SCH (10:20)
[2021-11-08] MEDS: tamsulosin 0.4mg capsule PO SCH (10:36)
[2021-11-08] MEDS: multivitamins, therapeutics tablet PO SCH (10:37)
[2021-11-08 11:30] VITALS: BP 127/68
[2021-11-08 14:00] VITALS: BP 107/55
[2021-11-08] MEDS: furosemide 20 MG/2 ML vial IV SCH (17:30)
[2021-11-08 18:00] VITALS: BP 127/70
--- NOTE | 2021-11-08 18:33 | NUR ---
Problems reprioritized. Patient report given, questions answered & plan of care reviewed with Kodi Bruce.
[2021-11-08 22:40] VITALS: BP 111/66
--- NOTE | 2021-11-09 00:50 | NUR ---
Patient urinated 400 mL clear yellow urine at 0025 on bedside commode. Completed bladder scan on patient after she returned to bed after voiding. 0 mLs of urine showed on bladder scan. Patient verbalized that she felt that her bladder was empty. Addendum: 11/09/21 at 0333 by Cristiana Edmondson - STUDENT VINCENZO Entered note in error
[2021-11-09] MEDS: VANCOmycin 1250MG/NS 250ml Bag 250 ML IV SCH ×2 (01:35→11:30)
[2021-11-09] MEDS: lactulose 20gm/30ml cup PO SCH ×5 (01:53→23:11)
[2021-11-09 02:00] VITALS: BP 108/55
--- NOTE | 2021-11-09 02:35 | NUR ---
Student documentation: I have reviewed interventions, assessments performed and documented by Dwain BURKS [facility].
--- NOTE | 2021-11-09 06:29 | NUR ---
Patient in room ORTHO 4006. I have received report from CARRILLO Cruz and had the opportunity to ask questions and assume patient care.
[2021-11-09 06:32] LABS: BASOPHILS # (AUTO) 0.1 X10'3 (0-0.2); BASOPHILS % (AUTO) 0.8 % (0-1); EOSINOPHILS # (AUTO) 0.4 X10'3 (0-0.9); EOSINOPHILS % (AUTO) 3.8 % (0-6); HEMATOCRIT 31.2 % (42.0-52.0); HEMOGLOBIN 10.4 g/dl (14.0-17.9); LYMPHOCYTES # (AUTO) 1.4 X10'3 (1.1-4.8); LYMPHOCYTES % (AUTO) 14.1 % (21-51); MEAN CORPUSCULAR HEMOGLOBIN 33.5 PG (27.0-31.0); MEAN CORPUSCULAR HGB CONC 33.3 g/dL (33.0-36.5); MEAN CORPUSCULAR VOLUME 100.7 FL (78-98); MEAN PLATELET VOLUME 9.6 FL (7.4-10.4); MONOCYTES # (AUTO) 0.9 X10'3 (0-0.9); MONOCYTES % (AUTO) 9.1 % (2-12); NEUTROPHILS # (AUTO) 7.1 X10'3 (1.8-7.7); NEUTROPHILS % (AUTO) 72.2 % (42-75); RED CELL DISTRIBUTION WIDTH 17.1 % (11.5-14.5); WHITE BLOOD COUNT 9.9 X10'3 (4.5-11.0)
[2021-11-09 06:35] LABS: PLATELET COUNT 67 X10'3 (140-440)
[2021-11-09 06:43] VITALS: BP 109/70
--- NOTE | 2021-11-09 06:45 | NUR ---
Student documentation: I have reviewed and agree with all interventions, assessments performed and documented by Cristiana HINDS.
--- NOTE | 2021-11-09 06:48 | NUR ---
Problems reprioritized. Patient report given, questions answered & plan of care reviewed with Nina VIZCAINO.
[2021-11-09 07:07] LABS: ALANINE AMINOTRANSFERASE 72 U/L (12-78); ALBUMIN 1.4 G/DL (3.4-5.0); ALBUMIN/GLOBULIN RATIO 0.3 (1.1-1.5); ALKALINE PHOSPHATASE 116 IU/L (46-116); ANION GAP 8 (8-16); ASPARTATE AMINO TRANSFERASE 128 U/L (10-37); BLOOD UREA NITROGEN 12 MG/DL (7-18); BUN/CREATININE RATIO 26.1 (5.4-32.0); CALCIUM 7.5 MG/DL (8.5-10.1); CHLORIDE 112 MMOL/L (99-107); CREATININE 0.46 MG/DL (0.60-1.10); GLUCOSE 99 MG/DL (70-104); POTASSIUM 3.6 MMOL/L (3.5-5.1); SODIUM 143 MMOL/L (135-145); TOTAL CARBON DIOXIDE 23.4 MMOL/L (24-32); TOTAL PROTEIN 5.6 G/DL (6.4-8.2); eGFR > 90 ML/MIN
[2021-11-09] MEDS: multivitamins, therapeutics tablet PO SCH (07:50)
[2021-11-09] MEDS: ziprasidone 20mg capsule PO SCH ×2 (07:50→23:12)
[2021-11-09] MEDS: pantoprazole 40mg Tablet.DR PO SCH (07:50)
[2021-11-09] MEDS: folic acid 1mg tablet PO SCH (07:50)
[2021-11-09] MEDS: rifampin 300mg capsule PO SCH ×2 (07:50→23:15)
[2021-11-09] MEDS: thiamine 100mg tablet PO SCH ×2 (07:50→23:12)
[2021-11-09] MEDS: docusate sod 100mg capsule PO SCH ×2 (07:50→20:00)
[2021-11-09] MEDS: furosemide 20 MG/2 ML vial IV SCH ×2 (07:51→23:11)
[2021-11-09] MEDS: tamsulosin 0.4mg capsule PO SCH (07:51)
[2021-11-09] MEDS: HYDROcodone/acetaminophen 10/325mg tab PO PRN (07:51)
[2021-11-09] MEDS: K and/or MAG REPLACEMENT MC SCH ×2 (07:58→20:00)
[2021-11-09] MEDS: lactose-reduced food (Ensure Enlive) - 237ml bottle PO SCH ×3 (07:58→17:43)
[2021-11-09] MEDS: budesonide 0.5mg/2ml UD nebule IH SCH ×2 (09:41→20:42)
[2021-11-09] MEDS: ipratropium/albuterol 3ml nebule NEB SCH ×3 (09:41→20:43)
[2021-11-09 10:54] VITALS: BP 116/63
[2021-11-09 14:44] VITALS: BP 109/61
[2021-11-09] MEDS ORDERED: VANCOMYCIN LEVEL IV ONE (16:30)
--- NOTE | 2021-11-09 17:16 | NUR ---
Received critical vanco trough of 23. Notified flaquito Rose. Addendum: 11/09/21 at 1721 by Nina Ace RN Pharmacist Milton advised to not administer 1600 dose and will change dosing. Addendum: 11/09/21 at 1722 by Nina Ace RN Advised to not administer 1700 dose. No 1600 dse.
--- NOTE | 2021-11-09 17:30 | NUR ---
Patient refusing to participate assessment. Addendum: 11/09/21 at 1731 by Nina Ace RN Amended: Links added.
--- NOTE | 2021-11-09 18:27 | NUR ---
Problems reprioritized. Patient report given, questions answered & plan of care reviewed with CARRILLO Cruz.
[2021-11-09 19:00] VITALS: BP 102/48
[2021-11-09 22:00] VITALS: BP 120/55
[2021-11-09] MEDS: HYDROcodone/acetaminophen 5mg/325mg tablet PO PRN (23:13)
[2021-11-10] MEDS: vancomycin/NS 1 GM ADD-VANTAGE 250 ML IV SCH ×2 (02:23→09:47)
--- NOTE | 2021-11-10 06:21 | NUR ---
Problems reprioritized. Patient report given, questions answered & plan of care reviewed with Nina VIZCAINO.
--- NOTE | 2021-11-10 06:26 | NUR ---
Patient in room ORTHO 4006. I have received report from CARRILLO Cruz and had the opportunity to ask questions and assume patient care.
[2021-11-10 06:54] VITALS: BP 124/76
[2021-11-10] MEDS: ziprasidone 20mg capsule PO SCH ×2 (07:36→19:14)
[2021-11-10] MEDS: HYDROcodone/acetaminophen 5mg/325mg tablet PO PRN (07:37)
[2021-11-10] MEDS: tamsulosin 0.4mg capsule PO SCH (07:37)
--- NOTE | 2021-11-10 07:37 | NUR ---
Reassessment: Pt continues on MM5 diet per [employer] recs though still w/ fairly low PO intake, avg 45% x 10 meals and 65% x 8 ONS, which is quite variable. Overall pt is meeting approximately 98% of est energy needs and 79% of est protein needs. Pt noted to be getting minimal assistance w/ meals Pt may benefit from NGT feedings if PO declines and feasible w/ current facial fractures. LBM 11/09 receiving routine bowel care. No change to recommendations at this time, will continue to monitor Recommendations: 1. Continue MM5 diet with thin liquids per ST recs 2. Ensure Enlive TIDWM 3. Encourage PO intake and assist with meals in view of confusion 4. Consider NGT placement for EN if PO intake does not improve 5. Continue routine Thiamine, Folic acid, and MVI in view of EtOH hx with elevated MCV 6. Routine bowel care 7. Scaled weight this admit; subsequent weekly scaled weights Addendum: 11/10/21 at [address] Amended: Links added.
[2021-11-10] MEDS: thiamine 100mg tablet PO SCH ×2 (07:38→19:14)
[2021-11-10] MEDS: folic acid 1mg tablet PO SCH (07:38)
[2021-11-10] MEDS: rifampin 300mg capsule PO SCH ×2 (07:38→19:14)
[2021-11-10] MEDS: multivitamins, therapeutics tablet PO SCH (07:38)
[2021-11-10] MEDS: pantoprazole 40mg Tablet.DR PO SCH (07:38)
[2021-11-10] MEDS: lactulose 20gm/30ml cup PO SCH ×3 (07:38→23:59)
[2021-11-10] MEDS: furosemide 20 MG/2 ML vial IV SCH (07:38)
[2021-11-10] MEDS: K and/or MAG REPLACEMENT MC SCH ×3 (08:00→20:00)
[2021-11-10] MEDS: docusate sod 100mg capsule PO SCH ×2 (08:00→19:15)
[2021-11-10] MEDS: lactose-reduced food (Ensure Enlive) - 237ml bottle PO SCH ×3 (08:00→18:08)
[2021-11-10] MEDS: ipratropium/albuterol 3ml nebule NEB SCH ×3 (08:24→20:41)
[2021-11-10] MEDS: budesonide 0.5mg/2ml UD nebule IH SCH ×2 (08:24→20:41)
--- NOTE | 2021-11-10 09:11 | NUR ---
patient refusing to have labs drawn this morning.
[2021-11-10 10:00] VITALS: BP 117/63
--- NOTE | 2021-11-10 12:49 | NUR ---
PAGER ID: [phone] MESSAGE: [id number]- Severo Martinez- spoke to CARRILLO Mckeon at [facility] regarding HOPE VAN and patient's meds. She reports no psych meds. No mention of Geodon. Meds she reported are those on his current med rec. - Nina Conklin9 Addendum: 11/10/21 at 1249 by Nina Ace RN Number for CARRILLO Mckeon [phone]
[2021-11-10 12:51] LABS: BASOPHILS # (AUTO) 0.1 X10'3 (0-0.2); BASOPHILS % (AUTO) 0.5 % (0-1); EOSINOPHILS # (AUTO) 0.3 X10'3 (0-0.9); EOSINOPHILS % (AUTO) 2.9 % (0-6); HEMATOCRIT 30.2 % (42.0-52.0); HEMOGLOBIN 9.8 g/dl (14.0-17.9); LYMPHOCYTES # (AUTO) 1.8 X10'3 (1.1-4.8); LYMPHOCYTES % (AUTO) 15.6 % (21-51); MEAN CORPUSCULAR HEMOGLOBIN 33.4 PG (27.0-31.0); MEAN CORPUSCULAR HGB CONC 32.5 g/dL (33.0-36.5); MEAN CORPUSCULAR VOLUME 102.8 FL (78-98); MEAN PLATELET VOLUME 8.9 FL (7.4-10.4); MONOCYTES # (AUTO) 1.2 X10'3 (0-0.9); MONOCYTES % (AUTO) 10.6 % (2-12); NEUTROPHILS # (AUTO) 7.9 X10'3 (1.8-7.7); NEUTROPHILS % (AUTO) 70.4 % (42-75); PLATELET COUNT 77 X10'3 (140-440); RED BLOOD COUNT 2.94 X10'6 (4.70-6.10); WHITE BLOOD COUNT 11.2 X10'3 (4.5-11.0)
[2021-11-10] MEDS ORDERED: VANCOMYCIN LEVEL IV ONE (13:00)
[2021-11-10 13:07] LABS: ALANINE AMINOTRANSFERASE 67 U/L (12-78); ALBUMIN 1.3 G/DL (3.4-5.0); ALBUMIN/GLOBULIN RATIO 0.3 (1.1-1.5); ALKALINE PHOSPHATASE 144 IU/L (46-116); ANION GAP 3 (8-16); BILIRUBIN,TOTAL 2.7 MG/DL (0.1-1.0); BLOOD UREA NITROGEN 15 MG/DL (7-18); BUN/CREATININE RATIO 28.3 (5.4-32.0); CALCIUM 7.2 MG/DL (8.5-10.1); CHLORIDE 109 MMOL/L (99-107); CREATININE 0.53 MG/DL (0.60-1.10); GLUCOSE 89 MG/DL (70-104); POTASSIUM 3.4 MMOL/L (3.5-5.1); SODIUM 139 MMOL/L (135-145); TOTAL CARBON DIOXIDE 27.3 MMOL/L (24-32); TOTAL PROTEIN 5.4 G/DL (6.4-8.2); eGFR > 90 ML/MIN
[2021-11-10 13:16] LABS: ASPARTATE AMINO TRANSFERASE 104 U/L (10-37)
[2021-11-10 14:00] VITALS: BP 111/66
[2021-11-10] MEDS: VANCOmycin 1250MG/NS 250ml Bag 250 ML IV SCH ×2 (16:17→23:57)
--- NOTE | 2021-11-10 16:31 | NUR ---
PAGER ID: [phone] MESSAGE: [id number]- Josue Martinez 3.4. ok to order replacement protocol? - Nina [phone]
[2021-11-10] MEDS ORDERED: magnesium Cl slow-release 64mg tablet PO PRN (17:35)
[2021-11-10] MEDS ORDERED: potassium Cl 20 mEq SR tablet PO PRN ×2 (17:35)
[2021-11-10] MEDS ORDERED: magnesium 4gm in 100ml NS 100 ML IV PRN (17:35)
[2021-11-10] MEDS ORDERED: magnesium 2GM in 50ml NS 50 ML IV PRN (17:35)
[2021-11-10] MEDS ORDERED: potassium CL 10mEq/100ml bag 100 ML IV PRN (17:35)
[2021-11-10 18:00] VITALS: BP 111/46
--- NOTE | 2021-11-10 18:22 | NUR ---
Problems reprioritized. Patient report given, questions answered & plan of care reviewed with CARRILLO HANNON.
[2021-11-10 19:16] LABS: MAGNESIUM 1.6 MG/DL (1.5-2.4); POTASSIUM 3.6 MMOL/L (3.5-5.1)
--- NOTE | 2021-11-10 20:25 | NUR ---
Patient was seen by nurseBill RN falling to the ground in his room by his bed. He fell onto his but not his head and no new wounds found at this time. He was already falling so was not assisted to the floor by his bed in 4005. He was assisted back to bed by 2 staff and vitals are stable at this time. I will inform Alma VIZCAINO the pt's nurse of the fall when she is back from her break. There was no bed alarm or TABBS alarm on patient when we found him. Bed has been changed out to a bed alarm bed and 3 rails put up and a TABBS alarm is on him now too.
[2021-11-10 21:00] VITALS: BP 107/51
--- NOTE | 2021-11-10 21:25 | NUR ---
I notified of the pt's fall and that no apparent injury noted at this time.
[2021-11-10 23:28] VITALS: BP 111/63
[2021-11-11] MEDS ORDERED: gentamicin 40 MG/1 ML inj IV SCH
[2021-11-11] MEDS: NORMAL SALINE IV SCH ×3 (01:46→17:00)
[2021-11-11] MEDS: GENTAMICIN IV SCH ×3 (01:46→17:00)
[2021-11-11 06:00] VITALS: BP 115/60
--- NOTE | 2021-11-11 06:52 | NUR ---
Problems reprioritized. Patient report given, questions answered & plan of care reviewed with Alma VIZCAINO .
[2021-11-11 06:59] LABS: ALANINE AMINOTRANSFERASE 72 U/L (12-78); ALBUMIN 1.4 G/DL (3.4-5.0); ALBUMIN/GLOBULIN RATIO 0.3 (1.1-1.5); ALKALINE PHOSPHATASE 149 IU/L (46-116); ANION GAP 6 (8-16); ASPARTATE AMINO TRANSFERASE 117 U/L (10-37); BASOPHILS # (AUTO) 0.1 X10'3 (0-0.2); BASOPHILS % (AUTO) 0.5 % (0-1); BILIRUBIN,TOTAL 2.5 MG/DL (0.1-1.0); BLOOD UREA NITROGEN 15 MG/DL (7-18); BUN/CREATININE RATIO 26.3 (5.4-32.0); CALCIUM 7.5 MG/DL (8.5-10.1); CHLORIDE 110 MMOL/L (99-107); CREATININE 0.57 MG/DL (0.60-1.10); EOSINOPHILS # (AUTO) 0.3 X10'3 (0-0.9); EOSINOPHILS % (AUTO) 3.1 % (0-6); GLUCOSE 95 MG/DL (70-104); HEMATOCRIT 30.6 % (42.0-52.0); HEMOGLOBIN 10.2 g/dl (14.0-17.9); LYMPHOCYTES # (AUTO) 1.9 X10'3 (1.1-4.8); MAGNESIUM 1.7 MG/DL (1.5-2.4); MEAN CORPUSCULAR HEMOGLOBIN 33.4 PG (27.0-31.0); MEAN CORPUSCULAR HGB CONC 33.2 g/dL (33.0-36.5); MEAN CORPUSCULAR VOLUME 100.6 FL (78-98); MEAN PLATELET VOLUME 10.3 FL (7.4-10.4); MONOCYTES # (AUTO) 1.3 X10'3 (0-0.9); MONOCYTES % (AUTO) 11.3 % (2-12); NEUTROPHILS # (AUTO) 7.7 X10'3 (1.8-7.7); NEUTROPHILS % (AUTO) 68.1 % (42-75); PLATELET COUNT 77 X10'3 (140-440); RED BLOOD COUNT 3.04 X10'6 (4.70-6.10); RED CELL DISTRIBUTION WIDTH 18.2 % (11.5-14.5); SODIUM 141 MMOL/L (135-145); TOTAL CARBON DIOXIDE 24.7 MMOL/L (24-32); WHITE BLOOD COUNT 11.3 X10'3 (4.5-11.0); eGFR > 90 ML/MIN
[2021-11-11] MEDS: budesonide 0.5mg/2ml UD nebule IH SCH ×2 (07:23→19:46)
[2021-11-11] MEDS: ipratropium/albuterol 3ml nebule NEB SCH ×3 (07:23→19:46)
[2021-11-11] MEDS: ziprasidone 20mg capsule PO SCH ×2 (07:53→20:04)
[2021-11-11] MEDS: tamsulosin 0.4mg capsule PO SCH (07:53)
[2021-11-11] MEDS: docusate sod 100mg capsule PO SCH ×2 (07:53→20:04)
[2021-11-11] MEDS: multivitamins, therapeutics tablet PO SCH (07:53)
[2021-11-11] MEDS: folic acid 1mg tablet PO SCH (07:53)
[2021-11-11] MEDS: pantoprazole 40mg Tablet.DR PO SCH (07:53)
[2021-11-11] MEDS: thiamine 100mg tablet PO SCH ×2 (07:53→20:08)
[2021-11-11] MEDS: rifampin 300mg capsule PO SCH ×2 (07:53→20:04)
[2021-11-11] MEDS: VANCOmycin 1250MG/NS 250ml Bag 250 ML IV SCH ×3 (07:55→22:47)
[2021-11-11] MEDS: lactose-reduced food (Ensure Enlive) - 237ml bottle PO SCH ×3 (07:57→18:00)
[2021-11-11] MEDS: lactulose 20gm/30ml cup PO SCH ×2 (08:00→16:00)
[2021-11-11] MEDS: K and/or MAG REPLACEMENT MC SCH ×4 (08:00→20:00)
[2021-11-11 10:00] VITALS: BP 117/67
--- NOTE | 2021-11-11 12:07 | NUR ---
PRESSURE ULCER EDUCATION: DEFINITION: A pressure ulcer is an area of skin that breaks down when you stay in one position too long. The constant pressure against the skin reduces the blood flow to that area and the affected tissue dies. CAUSES: "Being bedridden or in a wheelchair "Fragile skin "Having a chronic condition, such as diabetes or vascular disease "Inability to move certain parts of your body without assistance "Older age "Incontinence of urine or stool SYMPTOMS: "A reddened area that DOES NOT turn white when pressed on - this can be the beginning of a pressure ulcer "A blister, deep sore or a crater - these can be advanced pressure ulcers FIRST AID: "Relieve the pressure on this area "Keep the area clean and dry "Call your primary doctor if you see any of the above symptoms "DO NOT massage the area "DO NOT use a donut shaped or ring shaped pillow- these actually interfere with the blood flow and cause complications PREVENTION: "Check for pressure ulcers everyday "Change position at least every two hours to relieve pressure "Use items that help relieve pressure- pillows, sheepskin, foam padding, and powders. "Keep skin clean and dry "Eat healthy well balanced meals "Exercise daily IF YOU SEE ANY OF THESE SYMPTOMS WHILE IN THE HOSPITAL - TELL YOUR NURSE IMMEDIATELY. IF YOU SEE ANY OF THESE SYMPTOMS WHILE AT HOME OR HAVE ANY QUESTIONS OR CONCERNS ABOUT PRESSURE ULCERS - CALL YOUR PRIMARY DOCTOR IMMEDIATELY. Addendum: 11/11/21 at 1208 by Johana Ely LVN Amended: Links added.
[2021-11-11 14:00] VITALS: BP 102/52
[2021-11-11] MEDS ORDERED: VANCOMYCIN LEVEL IV ONE (14:30)
[2021-11-11] MEDS ORDERED: MESSAGE TO NURSING IV ONE ×2 (17:00→23:30)
--- NOTE | 2021-11-11 18:48 | NUR ---
Problems reprioritized. Patient report given, questions answered & plan of care reviewed with Alma VIZCAINO.
[2021-11-11 20:04] VITALS: BP 95/50
[2021-11-11 22:50] VITALS: BP 106/50
--- NOTE | 2021-11-12 00:20 | NUR ---
Gentamicin level was drawn. Lab notified that very little amt of blood was able to be drawn, approx 2ml. Lab notified nurse that it was a send out to [facility], Pharmacist made aware of this and okay to still hang the Gentamicin as ordered.
[2021-11-12] MEDS: NORMAL SALINE IV SCH ×3 (00:45→16:33)
[2021-11-12] MEDS: GENTAMICIN IV SCH ×3 (00:45→16:33)
--- NOTE | 2021-11-12 00:45 | NUR ---
Lab phoned, Gentamicin hemolyzed. Pharmacy notified and they will retime lab for draw before 0800 dose.
[2021-11-12 02:16] VITALS: BP 118/66
--- NOTE | 2021-11-12 06:43 | NUR ---
Patient in room ORTHO 4006. I have received report from Alma VIZCAINO and had the opportunity to ask questions and assume patient care.
[2021-11-12 07:13] VITALS: BP 111/61
[2021-11-12] MEDS: ipratropium/albuterol 3ml nebule NEB SCH ×3 (07:38→20:18)
[2021-11-12] MEDS: budesonide 0.5mg/2ml UD nebule IH SCH ×2 (07:38→20:18)
[2021-11-12] MEDS: lactulose 20gm/30ml cup PO SCH ×3 (08:00→16:00)
[2021-11-12] MEDS: lactose-reduced food (Ensure Enlive) - 237ml bottle PO SCH ×3 (08:00→18:11)
[2021-11-12] MEDS: K and/or MAG REPLACEMENT MC SCH ×4 (08:00→19:59)
--- NOTE | 2021-11-12 08:00 | NUR ---
Called Pharmacy about patient Gentamicin left message with Crystal about if should give medications with no trough
[2021-11-12 08:16] LABS: BASOPHILS # (AUTO) 0.1 X10'3 (0-0.2); BASOPHILS % (AUTO) 0.6 % (0-1); EOSINOPHILS # (AUTO) 0.5 X10'3 (0-0.9); EOSINOPHILS % (AUTO) 4.6 % (0-6); HEMATOCRIT 32.2 % (42.0-52.0); HEMOGLOBIN 10.5 g/dl (14.0-17.9); LYMPHOCYTES # (AUTO) 1.8 X10'3 (1.1-4.8); LYMPHOCYTES % (AUTO) 17.1 % (21-51); MEAN CORPUSCULAR HEMOGLOBIN 33.6 PG (27.0-31.0); MEAN CORPUSCULAR HGB CONC 32.7 g/dL (33.0-36.5); MEAN CORPUSCULAR VOLUME 102.7 FL (78-98); MEAN PLATELET VOLUME 9.2 FL (7.4-10.4); MONOCYTES # (AUTO) 1.1 X10'3 (0-0.9); MONOCYTES % (AUTO) 10.6 % (2-12); NEUTROPHILS % (AUTO) 67.1 % (42-75); PLATELET COUNT 86 X10'3 (140-440); RED BLOOD COUNT 3.13 X10'6 (4.70-6.10); RED CELL DISTRIBUTION WIDTH 18.8 % (11.5-14.5); WHITE BLOOD COUNT 10.5 X10'3 (4.5-11.0)
[2021-11-12 09:12] LABS: ALANINE AMINOTRANSFERASE 76 U/L (12-78); ALBUMIN 1.4 G/DL (3.4-5.0); ALBUMIN/GLOBULIN RATIO 0.3 (1.1-1.5); ALKALINE PHOSPHATASE 139 IU/L (46-116); ANION GAP 8 (8-16); ASPARTATE AMINO TRANSFERASE 130 U/L (10-37); BILIRUBIN,TOTAL 2.6 MG/DL (0.1-1.0); BLOOD UREA NITROGEN 14 MG/DL (7-18); BUN/CREATININE RATIO 31.1 (5.4-32.0); CALCIUM 7.5 MG/DL (8.5-10.1); CHLORIDE 109 MMOL/L (99-107); CREATININE 0.45 MG/DL (0.60-1.10); GLUCOSE 83 MG/DL (70-104); MAGNESIUM 1.9 MG/DL (1.5-2.4); POTASSIUM 4.1 MMOL/L (3.5-5.1); SODIUM 139 MMOL/L (135-145); TOTAL CARBON DIOXIDE 22.3 MMOL/L (24-32); eGFR > 90 ML/MIN
[2021-11-12] MEDS: VANCOmycin 1250MG/NS 250ml Bag 250 ML IV SCH ×3 (09:12→22:48)
[2021-11-12] MEDS: pantoprazole 40mg Tablet.DR PO SCH (09:16)
[2021-11-12] MEDS: docusate sod 100mg capsule PO SCH ×2 (09:16→19:55)
[2021-11-12] MEDS: multivitamins, therapeutics tablet PO SCH (09:16)
[2021-11-12] MEDS: ziprasidone 20mg capsule PO SCH ×2 (09:16→19:55)
[2021-11-12] MEDS: folic acid 1mg tablet PO SCH (09:17)
[2021-11-12] MEDS: rifampin 300mg capsule PO SCH ×2 (09:17→19:55)
[2021-11-12] MEDS: thiamine 100mg tablet PO SCH ×2 (09:17→19:55)
[2021-11-12] MEDS: tamsulosin 0.4mg capsule PO SCH (09:18)
[2021-11-12 10:00] VITALS: BP 109/56
--- NOTE | 2021-11-12 11:13 | NUR ---
was notified by pharmacy that Gentamicin should be hung without trough.
[2021-11-12 14:00] VITALS: BP 116/53
[2021-11-12 18:00] VITALS: BP 115/56
--- NOTE | 2021-11-12 18:27 | NUR ---
Problems reprioritized. Patient report given, questions answered & plan of care reviewed with Alma VIZCAINO.
[2021-11-12 22:00] VITALS: BP 141/73
[2021-11-12] MEDS: HYDROcodone/acetaminophen 10/325mg tab PO PRN (22:48)
[2021-11-13] MEDS: GENTAMICIN IV SCH ×3 (00:30→16:13)
[2021-11-13] MEDS: NORMAL SALINE IV SCH ×3 (00:30→16:13)
[2021-11-13] MEDS: albuterol 2.5 MG/3 ML nebule NEB PRN (05:05)
[2021-11-13 06:17] LABS: MAGNESIUM 1.9 MG/DL (1.5-2.4); POTASSIUM 3.9 MMOL/L (3.5-5.1)
[2021-11-13 06:33] VITALS: BP 122/66
--- NOTE | 2021-11-13 07:17 | NUR ---
Patient in room ORTHO 4006. I have received report from Alma VIZCAINO and had the opportunity to ask questions and assume patient care.
[2021-11-13] MEDS: docusate sod 100mg capsule PO SCH ×2 (08:00→21:09)
[2021-11-13] MEDS: K and/or MAG REPLACEMENT MC SCH ×4 (08:00→19:27)
[2021-11-13] MEDS: multivitamins, therapeutics tablet PO SCH (08:17)
[2021-11-13] MEDS: thiamine 100mg tablet PO SCH ×2 (08:17→21:10)
[2021-11-13] MEDS: ziprasidone 20mg capsule PO SCH ×2 (08:18→21:10)
[2021-11-13] MEDS: rifampin 300mg capsule PO SCH ×2 (08:18→21:10)
[2021-11-13] MEDS: pantoprazole 40mg Tablet.DR PO SCH (08:18)
[2021-11-13] MEDS: tamsulosin 0.4mg capsule PO SCH (08:19)
[2021-11-13] MEDS: folic acid 1mg tablet PO SCH (08:19)
[2021-11-13] MEDS: lactulose 20gm/30ml cup PO SCH ×3 (08:23→15:53)
[2021-11-13] MEDS: lactose-reduced food (Ensure Enlive) - 237ml bottle PO SCH ×3 (08:23→18:00)
[2021-11-13] MEDS: VANCOmycin 1250MG/NS 250ml Bag 250 ML IV SCH ×3 (08:24→23:02)
--- NOTE | 2021-11-13 08:35 | NUR ---
Reassessment: Pt continues on MM5 diet per [employer] recs with significant improvement in PO intake since last RD assessment: avg 76% x 10 meals and 78% x 8 ONS, now meeting 100% of est nutrient needs. Noted to be independent w/ meals. LBM 11/12 receiving routine bowel care. No change to recommendations, will continue to monitor. Recommendations: 1. Continue MM5 diet with thin liquids per ST recs 2. Ensure Enlive TIDWM 3. Encourage PO intake and assist with meals in view of confusion 4. Consider NGT placement for EN if PO intake does not improve 5. Continue routine Thiamine, Folic acid, and MVI in view of EtOH hx with elevated MCV 6. Routine bowel care 7. Scaled weight this admit; subsequent weekly scaled weights Addendum: 11/13/21 at [address] Amended: Links added.
[2021-11-13] MEDS: ipratropium/albuterol 3ml nebule NEB SCH ×3 (09:33→19:13)
[2021-11-13] MEDS: budesonide 0.5mg/2ml UD nebule IH SCH ×2 (09:33→19:13)
[2021-11-13 10:00] VITALS: BP 125/67
[2021-11-13 16:00] VITALS: BP 123/53
[2021-11-13 18:00] VITALS: BP 124/68
--- NOTE | 2021-11-13 18:27 | NUR ---
Problems reprioritized. Patient report given, questions answered & plan of care reviewed with Ness VIZCAINO.
--- NOTE | 2021-11-13 18:30 | NUR ---
Patient in room ORTHO 4006. I have received report from Segundo VIZCAINO and had the opportunity to ask questions and assume patient care.
[2021-11-13 22:00] VITALS: BP 112/58
[2021-11-14] MEDS: NORMAL SALINE IV SCH ×4 (00:26→23:20)
[2021-11-14] MEDS: GENTAMICIN IV SCH ×4 (00:26→23:20)
--- NOTE | 2021-11-14 06:30 | NUR ---
Problems reprioritized. Patient report given, questions answered & plan of care reviewed with Segundo RN.
[2021-11-14 06:55] VITALS: BP 90/54
--- NOTE | 2021-11-14 07:00 | NUR ---
Patient in room ORTHO 4006. I have received report from Ness VIZCAINO and had the opportunity to ask questions and assume patient care.
[2021-11-14] MEDS: ipratropium/albuterol 3ml nebule NEB SCH ×3 (07:39→20:46)
[2021-11-14] MEDS: budesonide 0.5mg/2ml UD nebule IH SCH ×2 (07:39→20:46)
[2021-11-14] MEDS: VANCOmycin 1250MG/NS 250ml Bag 250 ML IV SCH ×3 (07:44→23:13)
[2021-11-14 07:47] LABS: MAGNESIUM 1.6 MG/DL (1.5-2.4); POTASSIUM 3.7 MMOL/L (3.5-5.1)
[2021-11-14] MEDS: lactulose 20gm/30ml cup PO SCH ×3 (07:54→15:47)
[2021-11-14] MEDS: ziprasidone 20mg capsule PO SCH ×2 (07:55→19:54)
[2021-11-14] MEDS: rifampin 300mg capsule PO SCH ×2 (07:57→19:54)
[2021-11-14] MEDS: multivitamins, therapeutics tablet PO SCH (07:57)
[2021-11-14] MEDS: thiamine 100mg tablet PO SCH ×2 (07:58→19:54)
[2021-11-14] MEDS: tamsulosin 0.4mg capsule PO SCH (07:59)
[2021-11-14] MEDS: K and/or MAG REPLACEMENT MC SCH ×4 (08:00→19:06)
[2021-11-14] MEDS: folic acid 1mg tablet PO SCH (08:03)
[2021-11-14] MEDS: pantoprazole 40mg Tablet.DR PO SCH (08:03)
[2021-11-14] MEDS: docusate sod 100mg capsule PO SCH ×2 (08:04→20:00)
[2021-11-14] MEDS: lactose-reduced food (Ensure Enlive) - 237ml bottle PO SCH ×3 (08:09→18:00)
[2021-11-14 10:22] VITALS: BP 93/60
--- NOTE | 2021-11-14 11:16 | NUR ---
Student Medication Administration: For this medication-pass time frame [id number], all medications were reviewed, administered and documented per hospital policy by Constantin Sotelo. Student documentation:I have reviewed and agree with all interventions, assessments performed and documented by Constantin Sotelo.
--- NOTE | 2021-11-14 11:43 | NUR ---
Patient tried to call [employer] [facility] (phone number from their website), and left voicemail. patient is very worried about the health and status of his dog.
[2021-11-14] MEDS: duloxetine 30mg CAPSULE.DR PO SCH (12:11)
[2021-11-14 16:10] VITALS: BP 108/68
--- NOTE | 2021-11-14 17:36 | NUR ---
IV infiltrated with about 100 mL of vanco did not run in. IV line was disposed of PICC insertion during this time. Patient will continue to with medications as ordered.
[2021-11-14 18:00] VITALS: BP 102/53
--- NOTE | 2021-11-14 18:05 | NUR ---
Problems reprioritized. Patient report given, questions answered & plan of care reviewed with Ness VIZCAINO.
--- NOTE | 2021-11-14 18:07 | NUR ---
Patient in room ORTHO 4006. I have received report from Segundo VIZCAINO and had the opportunity to ask questions and assume patient care.
[2021-11-14 22:00] VITALS: BP 119/70
[2021-11-15 05:52] LABS: BASOPHILS # (AUTO) 0.1 X10'3 (0-0.2); BASOPHILS % (AUTO) 1.5 % (0-1); EOSINOPHILS # (AUTO) 0.3 X10'3 (0-0.9); EOSINOPHILS % (AUTO) 4.2 % (0-6); HEMATOCRIT 30.2 % (42.0-52.0); HEMOGLOBIN 10.1 g/dl (14.0-17.9); LYMPHOCYTES % (AUTO) 14.8 % (21-51); MEAN CORPUSCULAR HEMOGLOBIN 33.5 PG (27.0-31.0); MEAN CORPUSCULAR HGB CONC 33.3 g/dL (33.0-36.5); MEAN CORPUSCULAR VOLUME 100.4 FL (78-98); MEAN PLATELET VOLUME 9.3 FL (7.4-10.4); MONOCYTES % (AUTO) 13.7 % (2-12); NEUTROPHILS # (AUTO) 4.7 X10'3 (1.8-7.7); NEUTROPHILS % (AUTO) 65.8 % (42-75); PLATELET COUNT 80 X10'3 (140-440); RED CELL DISTRIBUTION WIDTH 18.3 % (11.5-14.5); WHITE BLOOD COUNT 7.1 X10'3 (4.5-11.0)
[2021-11-15 06:00] VITALS: BP 131/75
[2021-11-15 06:07] LABS: ALANINE AMINOTRANSFERASE 72 U/L (12-78); ALBUMIN 1.4 G/DL (3.4-5.0); ALBUMIN/GLOBULIN RATIO 0.3 (1.1-1.5); ALKALINE PHOSPHATASE 153 IU/L (46-116); ANION GAP 3 (8-16); ASPARTATE AMINO TRANSFERASE 102 U/L (10-37); BILIRUBIN,TOTAL 2.4 MG/DL (0.1-1.0); BLOOD UREA NITROGEN 13 MG/DL (7-18); BUN/CREATININE RATIO 27.1 (5.4-32.0); CALCIUM 7.1 MG/DL (8.5-10.1); CHLORIDE 110 MMOL/L (99-107); CREATININE 0.48 MG/DL (0.60-1.10); POTASSIUM 3.4 MMOL/L (3.5-5.1); SODIUM 139 MMOL/L (135-145); TOTAL CARBON DIOXIDE 25.7 MMOL/L (24-32); TOTAL PROTEIN 5.8 G/DL (6.4-8.2); eGFR > 90 ML/MIN
[2021-11-15 06:09] LABS: GLUCOSE 95 MG/DL (70-104)
--- NOTE | 2021-11-15 06:20 | NUR ---
Problems reprioritized. Patient report given, questions answered & plan of care reviewed with Niurka VIZCAINO. Addendum: 11/15/21 at 0651 by Ness Guillen RN Report given to Zia VIZCAINO NOT Niurka VIZCAINO
--- NOTE | 2021-11-15 06:23 | NUR ---
Patient in room ORTHO 4006. I have received report from Ness VIZCAINO and had the opportunity to ask questions and assume patient care.
[2021-11-15] MEDS ORDERED: MESSAGE TO NURSING IV ONE (07:30)
[2021-11-15] MEDS: VANCOmycin 1250MG/NS 250ml Bag 250 ML IV SCH ×2 (07:46→15:18)
[2021-11-15] MEDS: ipratropium/albuterol 3ml nebule NEB SCH ×2 (07:53→14:47)
[2021-11-15] MEDS: budesonide 0.5mg/2ml UD nebule IH SCH (07:53)
[2021-11-15] MEDS: K and/or MAG REPLACEMENT MC SCH ×2 (08:00)
[2021-11-15] MEDS: ziprasidone 20mg capsule PO SCH (08:00)
[2021-11-15] MEDS: lactose-reduced food (Ensure Enlive) - 237ml bottle PO SCH ×3 (08:00→18:03)
[2021-11-15 08:23] LABS: MAGNESIUM 1.4 MG/DL (1.5-2.4)
[2021-11-15] MEDS: multivitamins, therapeutics tablet PO SCH (08:46)
[2021-11-15] MEDS: pantoprazole 40mg Tablet.DR PO SCH (08:46)
[2021-11-15] MEDS: tamsulosin 0.4mg capsule PO SCH (08:46)
[2021-11-15] MEDS: folic acid 1mg tablet PO SCH (08:46)
[2021-11-15] MEDS: lactulose 20gm/30ml cup PO SCH ×3 (08:46→15:34)
[2021-11-15] MEDS: duloxetine 30mg CAPSULE.DR PO SCH (08:46)
[2021-11-15] MEDS: docusate sod 100mg capsule PO SCH (08:46)
[2021-11-15] MEDS: thiamine 100mg tablet PO SCH (08:46)
[2021-11-15] MEDS: rifampin 300mg capsule PO SCH (09:31)
[2021-11-15] MEDS: NORMAL SALINE IV SCH ×2 (09:31→16:57)
[2021-11-15] MEDS: GENTAMICIN IV SCH ×2 (09:31→16:57)
[2021-11-15 10:00] VITALS: BP 130/81
--- NOTE | 2021-11-15 11:09 | NUR ---
RE pt in room 4006 and 4012B both have K and Mg replace orders, both have K of 3.4. Need new med orders for each to replace if you want them replaced Thank You
[2021-11-15] MEDS ORDERED: magnesium 2GM in 50ml NS 50 ML IV PRN (12:55)
[2021-11-15] MEDS ORDERED: potassium CL 10mEq/100ml bag 100 ML IV PRN (12:55)
[2021-11-15] MEDS ORDERED: magnesium Cl slow-release 64mg tablet PO PRN (12:55)
[2021-11-15] MEDS ORDERED: magnesium 4gm in 100ml NS 100 ML IV PRN (12:55)
[2021-11-15] MEDS ORDERED: POTASSIUM BICARB 20meq eff tab 20 MEQ TABLET.EFF PO PRN ×2 (12:55)
[2021-11-15 13:37] LABS: MAGNESIUM 1.5 MG/DL (1.5-2.4); POTASSIUM 3.5 MMOL/L (3.5-5.1)
[2021-11-15 14:00] VITALS: BP 90/52
[2021-11-15] MEDS ORDERED: potassium Cl 40MEQ/1/2NS 520ml 520 ML IV PRN (14:11)
--- NOTE | 2021-11-15 18:11 | NUR ---
Problems reprioritized. Patient report given, questions answered & plan of care reviewed with Maria R VIZCAINO.
[2021-11-15] MEDS ORDERED: K and/or MAG REPLACEMENT MC SCH (20:00)
--- NOTE | 2021-11-15 20:03 | NUR ---
Patient was transferred via ambulance service to [facility] at this time, patient had a bag of belongings gathered from the hospital room that were sent with him. All discharge instructions were given to patient who was in agreement with his transfer to [facility] at this time. Report was called at this time to Stephanie at [facility] and given by CARRILLO Arzola on this unit as she has been the patient primary care nurse the last two night shifts. All questions and concerns were addressed at the time of report given to receiving facility of patient. Patient was sent with PICC line to [facility] . PICC line was flushed prior to transport to verify patency, no issues noted.
[2021-11-16] MEDS ORDERED: VANCOMYCIN LEVEL IV ONE (06:30)
== END 2021-11-15 19:55 | DRG 720 ==
LOC: ER 15:16 → ED HOLD 18:13 → EDBEDREQ 20:51 → ORTHO 4S 22:09
PROVIDERS: ADMIT Family Medicine; ATTEND Family Medicine
PROC: B32T1ZZ Computerized Tomography (CT Scan) of Left Pulmonary Artery using Low Osmolar Contrast (ICD-10-PCS; 2021-10-31)
PROC: B3201ZZ Computerized Tomography (CT Scan) of Thoracic Aorta using Low Osmolar Contrast (ICD-10-PCS; 2021-10-31)
PROC: B32S1ZZ Computerized Tomography (CT Scan) of Right Pulmonary Artery using Low Osmolar Contrast (ICD-10-PCS; 2021-10-31)
PROC: B3251ZZ Computerized Tomography (CT Scan) of Bilateral Common Carotid Arteries using Low Osmolar Contrast (ICD-10-PCS; 2021-11-03)
PROC: B32G1ZZ Computerized Tomography (CT Scan) of Bilateral Vertebral Arteries using Low Osmolar Contrast (ICD-10-PCS; 2021-11-03)
PROC: B32R1ZZ Computerized Tomography (CT Scan) of Intracranial Arteries using Low Osmolar Contrast (ICD-10-PCS; 2021-11-03)
PROC: B3281ZZ Computerized Tomography (CT Scan) of Bilateral Internal Carotid Arteries using Low Osmolar Contrast (ICD-10-PCS; 2021-11-03)
PROC: 02HV33Z Insertion of Infusion Device into Superior Vena Cava, Percutaneous Approach (ICD-10-PCS; principal; 2021-11-14)
PROC: B548ZZA Ultrasonography of Superior Vena Cava, Guidance (ICD-10-PCS; 2021-11-14)
DX: A41.1 Sepsis due to other specified staphylococcus (principal); I33.0 Acute and subacute infective endocarditis; J81.0 Acute pulmonary edema; E43 Unspecified severe protein-calorie malnutrition; D69.6 Thrombocytopenia, unspecified; I63.89 Other cerebral infarction; E83.51 Hypocalcemia; E88.09 Other disorders of plasma-protein metabolism, not elsewhere classified; K72.90 Hepatic failure, unspecified without coma; S32.82XA Multiple fractures of pelvis without disruption of pelvic ring, initial encounter for closed fracture; E86.0 Dehydration; F32.A Depression, unspecified; R29.706 NIHSS score 6; B19.20 Unspecified viral hepatitis C without hepatic coma; Z20.822 Contact with and (suspected) exposure to COVID-19; F12.90 Cannabis use, unspecified, uncomplicated; F15.90 Other stimulant use, unspecified, uncomplicated; G89.29 Other chronic pain; M54.50 Low back pain, unspecified; J43.9 Emphysema, unspecified; R45.1 Restlessness and agitation; D50.9 Iron deficiency anemia, unspecified; S42.002A Fracture of unspecified part of left clavicle, initial encounter for closed fracture; K59.00 Constipation, unspecified; R62.7 Adult failure to thrive; Z59.00 Homelessness unspecified; Z72.0 Tobacco use; Z85.89 Personal history of malignant neoplasm of other organs and systems; Z86.73 Personal history of transient ischemic attack (TIA), and cerebral infarction without residual deficits; Z87.828 Personal history of other (healed) physical injury and trauma; Z68.23 Body mass index [BMI] 23.0-23.9, adult; Z79.899 Other long term (current) drug therapy; V19.9XXA Pedal cyclist (driver) (passenger) injured in unspecified traffic accident, initial encounter; Y93.55 Activity, bike riding; Y92.89 Other specified places as the place of occurrence of the external cause; Y99.8 Other external cause status
CPT/HCPCS: 36415; 36573; 70450; 70496; 70498; 70551; 71045; 71275; 72125; 72131; 72192; 76700; 80053; 80061; 80074; 80202; 80320; 82140; 83036; 83540; 83550; 83605; 83735; 84132; 84145; 84153; 84154; 84443; 85007; 85025; 85610; 86592; 86703; 87040; 87077; 87081; 87186; 87635; 92508; 92616; 93005; 93306; 94640; 94667; 94760; 96374; 97110; 97116; 97161; 97164; 97530; 97535; 99285; C1751; G0378; J0696; J1580; J1940; J3370; J3490; J7030; Q9967

== ENCOUNTER 2021-12-24 23:26 | Emergency (ER) | payer MEDICAID ==
[~2021-12-24] VITALS: Ht 177.8 cm; Wt 63.0 kg
[~2021-12-24 23:26] MED LIST changes: -ALBU6.7H9 INH; +ALBU8.5H17 IH; +FLO0.4C PO; +LACT10SO3 PO; -LEVA15HF4 IH; +PANT40TA54 PO; -PROM12.512 PO; +TIOT4MIS3 INH; -TRAM50TA2 PO
[2021-12-24 23:43] VITALS: BP 135/78
[2021-12-25 00:25] LABS: BASOPHILS # (AUTO) 0.1 X10'3 (0-0.2); BASOPHILS % (AUTO) 0.9 % (0-1); EOSINOPHILS # (AUTO) 0.4 X10'3 (0-0.9); HEMOGLOBIN 13.1 g/dl (14.0-17.9); LYMPHOCYTES # (AUTO) 1.5 X10'3 (1.1-4.8); LYMPHOCYTES % (AUTO) 23.2 % (21-51); MEAN CORPUSCULAR HEMOGLOBIN 31.3 PG (27.0-31.0); MEAN CORPUSCULAR HGB CONC 33.5 g/dL (33.0-36.5); MEAN CORPUSCULAR VOLUME 93.4 FL (78-98); MEAN PLATELET VOLUME 8.7 FL (7.4-10.4); MONOCYTES # (AUTO) 0.8 X10'3 (0-0.9); MONOCYTES % (AUTO) 11.5 % (2-12); NEUTROPHILS # (AUTO) 3.9 X10'3 (1.8-7.7); NEUTROPHILS % (AUTO) 58.4 % (42-75); PLATELET COUNT 125 X10'3 (140-440); RED BLOOD COUNT 4.18 X10'6 (4.70-6.10); RED CELL DISTRIBUTION WIDTH 16.8 % (11.5-14.5); WHITE BLOOD COUNT 6.6 X10'3 (4.5-11.0)
[2021-12-25 00:32] LABS: ALANINE AMINOTRANSFERASE 115 U/L (12-78); ALBUMIN 2.1 G/DL (3.4-5.0); ALBUMIN/GLOBULIN RATIO 0.4 (1.1-1.5); ALKALINE PHOSPHATASE 146 IU/L (46-116); ANION GAP 5 (8-16); ASPARTATE AMINO TRANSFERASE 156 U/L (10-37); BILIRUBIN,TOTAL 1.3 MG/DL (0.1-1.0); BLOOD UREA NITROGEN 17 MG/DL (7-18); BUN/CREATININE RATIO 23.3 (5.4-32.0); CALCIUM 8.3 MG/DL (8.5-10.1); CHLORIDE 112 MMOL/L (99-107); CREATININE 0.73 MG/DL (0.60-1.10); GLUCOSE 117 MG/DL (70-104); LIPASE 136 U/L (73-393); POTASSIUM 3.6 MMOL/L (3.5-5.1); SODIUM 144 MMOL/L (135-145); TOTAL CARBON DIOXIDE 27.4 MMOL/L (24-32); TOTAL PROTEIN 7.1 G/DL (6.4-8.2); eGFR > 90 ML/MIN
== END 2021-12-25 01:27 | disposition left against medical advice (07) ==
LOC: ER 23:26
DX: R10.31 Right lower quadrant pain (principal); R10.32 Left lower quadrant pain; R10.11 Right upper quadrant pain; R10.12 Left upper quadrant pain; R19.7 Diarrhea, unspecified; Z53.21 Procedure and treatment not carried out due to patient leaving prior to being seen by health care provider
CPT/HCPCS: 36415; 80053; 83690; 85025